=== PATIENT | male | born 1955 | race Hispanic/Latino ===

== ENCOUNTER 2021-10-10 06:35 | Day surgery (SDC) | payer OTHER ==
[2021-10-09 11:01] VITALS: BP 126/61
[~2021-10-10] VITALS: Ht 165.1 cm; Wt 69.4 kg
[2021-10-10] VITALS (14 sets, daily range): BP systolic 103–125; BP diastolic 53–71
[~2021-10-10 06:35] MED LIST: FAMO10TA39 PO; FEXO1TAB8 PO; FINA5TAB41 PO; MULT-1082 PO; SIMV10TA97 PO; TAMS-1 PO
[2021-10-10] MEDS ORDERED: LACTATED RINGERS 1000ML 1,000 ML IV ONE (07:58)
[2021-10-10] MEDS ORDERED: LIDOCAINE 1%-EPI 1:100,000 20 ML VIAL IJ ONE (07:59)
[2021-10-10] MEDS ORDERED: NEOMY SULF/BACITRAC ZN/POLY OINT 30GM TUBE TP ONE (07:59)
[2021-10-10] MEDS ORDERED: FENTANYL CITRATE PF 50 MCG/1 ML 2ML VIAL ONE (07:59)
[2021-10-10] MEDS ORDERED: MIDAZOLAM HCL 1 MG/ML 2ML VIAL ONE (07:59)
[2021-10-10] MEDS ORDERED: PROPOFOL 10 MG/ML 20ML VIAL IV ONE ×2 (07:59→09:25)
[2021-10-10] MEDS ORDERED: EPINEPHRINE 1 MG/ML 30ML VIAL IJ ONE (07:59)
[2021-10-10] MEDS ORDERED: LIDOCAINE HCL 1% MDV 50ML VIAL ONE (08:12)
[2021-10-10] MEDS ORDERED: ROCURONIUM 10MG/1ML SYR 10 MG/ML ML ONE (08:12)
[2021-10-10] MEDS ORDERED: DEXAMETHASONE SOD PHOSPHATE 10MG/ML 1ML VIAL ONE (08:28)
[2021-10-10] MEDS ORDERED: ONDANSETRON 4MG INJ ONE (08:29)
[2021-10-10] MEDS ORDERED: EPHEDRINE SULFATE 50 MG/ML AMPULE ONE (08:53)
[2021-10-10] MEDS ORDERED: NEOSTIGMINE 5MG/5ML SYR IV ONE (09:14)
[2021-10-10] MEDS ORDERED: GLYCOPYRROLATE 1 MG/5 ML SYRINGE ONE (09:14)
== END 2021-10-10 11:15 | disposition home or self-care (01) ==
LOC: DAH 06:35
PROVIDERS: ATTEND Otolaryngology Plastic Surgery within the Head & Neck
DX: H70.12 Chronic mastoiditis, left ear (principal); H91.8X2 Other specified hearing loss, left ear; H72.92 Unspecified perforation of tympanic membrane, left ear; Z79.899 Other long term (current) drug therapy
CPT/HCPCS: 69641; 87635; A4215; A4221; A4222; A4223; A4649; A4663; C9803; J0171; J1100; J2250; J2405; J2704 ×2; J2710; J3010; J3490 ×3; J7040; J7120